=== PATIENT | male | born 1995 | race Caucasian/White ===

== ENCOUNTER 2017-12-21 17:21 | Emergency (ER) | payer OTHER ==
[~2017-12-21] VITALS: Ht 182.9 cm; Wt 79.0 kg
[2017-12-21] MEDS ORDERED: LIDO30CR23 TOP (18:16)
[2017-12-21] MEDS ORDERED: PROCHC RC (18:16)
== END 2017-12-21 18:24 | disposition home or self-care (01) ==
LOC: ER 17:24
DX: K64.4 Residual hemorrhoidal skin tags (principal)
CPT/HCPCS: 99283